=== PATIENT | female | born 2000 | race Two or more races ===

== ENCOUNTER 2023-04-12 09:20 | Emergency (ER) | payer MEDICAID, OTHER ==
[~2023-04-12] VITALS: Ht 160 cm; Wt 55.9 kg
[2023-04-12 09:58] LABS: Basophils # (auto) 0 10 ^3/uL (0-0.2); Basophils % (auto) 0.4 % (0.0-2.0); Eosinophils # (auto) 0 10 ^3/uL (0-0.8); Eosinophils % (auto) 0.6 % (0.0-7.0); Hematocrit 39.8 % (36.0-46.0); Hemoglobin 13.3 g/dL (12.2-16.2); Lymphocytes # (auto) 1.7 10 ^3/uL (0.4-5.4); Lymphocytes % (auto) 21.9 % (10.0-50.0); Mean Corpuscular Hemoglobin 29.6 pg (28.0-32.0); Mean Corpuscular Hgb Conc. 33.4 g/dL (32.0-36.0); Mean Corpuscular Volume 88.4 fL (80.0-100.0); Monocytes # (auto) 0.4 10 ^3/uL (0-1.3); Monocytes % (auto) 5.5 % (0.0-12.0); Neutrophils # (auto) 5.5 10 ^3/uL (1.6-8.6); Neutrophils % (auto) 71.6 % (37.0-80.0); Red Cell Distribution Width 14.9 % (11.8-14.3); White Blood Cell 7.7 10^3/uL (4.4-10.8)
[2023-04-12 09:59] LABS: Urine Bacteria FEW /hpf (None Seen); Urine Blood 3+ /uL (Negative); Urine Clarity HAZY (Clear); Urine Color Colorless (Yellow); Urine Mucus FEW (None Seen); Urine Protein, UAD Negative (Negative); Urine Specific Gravity 1.011 (1.001-1.035); Urine Urobilinogen Normal (Negative); Urine WBC 9 /hpf (0 - 5); Urine pH 5.5 (5.0-8.0)
[2023-04-12 10:23] LABS: Alanine Aminotransferase 13 U/L (7-40); Albumin 4.2 g/dL (3.2-4.8); Alkaline Phosphatase 74 U/L (46-116); Anion Gap 7.5 (5-15); Aspartate Aminotransferase 12 U/L (13-40); Calcium 8.7 mg/dL (8.5-10.1); Carbon Dioxide 22.5 mmol/L (20-30); Chloride 109 mmol/L (98-107); Glucose 93 mg/dL (74-106); Potassium 3.9 mmol/L (3.5-5.1); Sodium 139 mmol/L (136-145)
[2023-04-12 10:24] LABS: Bilirubin, Total 0.3 mg/dL (0.2-1.0); Total Protein 6.8 g/dL (5.7-8.2)
[2023-04-12 10:29] LABS: BUN/Creatinine Ratio 6.3 (10.0-20.0); Blood Urea Nitrogen < 5 mg/dL (9-23)
[2023-04-12] MEDS ORDERED: IOHEXOL 350 MG/ML 100ML IJ ONE (12:27)
[2023-04-12] MEDS ORDERED: CIPR-173 PO (13:44)
[2023-04-12 13:54] VITALS: BP 120/84; PULSE 82; RESP 18; TEMP 98; O2SAT 99
== END 2023-04-12 13:56 | disposition home or self-care (01) ==
LOC: ER 09:20
DX: N39.0 Urinary tract infection, site not specified (principal); R10.2 Pelvic and perineal pain; R07.89 Other chest pain; J45.909 Unspecified asthma, uncomplicated; Z79.2 Long term (current) use of antibiotics
CPT/HCPCS: 36415; 71046; 71275; 76830; 76856; 80053; 81001; 84702; 85025; 85379; 99285; Q9967; 93005

== ENCOUNTER 2023-07-26 16:20 | Emergency (ER) | payer MEDICAID ==
[~2023-07-26] VITALS: Ht 160 cm; Wt 63.0 kg
[~2023-07-26 16:20] MED LIST: CIPR-173 PO
[2023-07-26] MEDS ORDERED: DexAMETHasone SOD PHOS 10MG/1ML VIAL INJ IM ONE (16:45)
[2023-07-26] MEDS ORDERED: IPRATROPIUM BROM 0.5 MG/2.5ML INH SOL NEB ONE (16:45)
[2023-07-26] MEDS ORDERED: ALBUTEROL SULF 2.5 MG/0.5ML(0.5%) NEB SOLN NEB ONE (16:45)
[2023-07-26 16:51] LABS: Basophils # (auto) 0 10 ^3/uL (0-0.2); Basophils % (auto) 0.3 % (0.0-2.0); Eosinophils # (auto) 0 10 ^3/uL (0-0.8); Eosinophils % (auto) 0.7 % (0.0-7.0); Hematocrit 42.2 % (36.0-46.0); Hemoglobin 13.9 g/dL (12.2-16.2); Lymphocytes # (auto) 1.3 10 ^3/uL (0.4-5.4); Lymphocytes % (auto) 26.3 % (10.0-50.0); Mean Corpuscular Hemoglobin 30.5 pg (28.0-32.0); Mean Corpuscular Hgb Conc. 32.9 g/dL (32.0-36.0); Mean Corpuscular Volume 92.8 fL (80.0-100.0); Monocytes # (auto) 0.5 10 ^3/uL (0-1.3); Monocytes % (auto) 11.1 % (0.0-12.0); Neutrophils % (auto) 61.6 % (37.0-80.0); Nucleated Red Blood Cells % 0.1 %; Red Blood Cells 4.55 10^6/uL (4.0-5.20); Red Cell Distribution Width 13.6 % (11.8-14.3); White Blood Cell 4.8 10^3/uL (4.4-10.8)
[2023-07-26 17:06] LABS: INR 0.9 (0.9-1.15); Partial Thromboplastin Time 31.2 SEC (24.5-34.5); Prothrombin Time 9.5 sec (9.3-11.8)
[2023-07-26 17:11] LABS: Alanine Aminotransferase 15 U/L (7-40); Albumin 4.7 g/dL (3.2-4.8); Alkaline Phosphatase 86 U/L (46-116); Anion Gap 8 (5-15); Aspartate Aminotransferase 22 U/L (13-40); Bilirubin, Total 0.3 mg/dL (0.2-1.0); Blood Urea Nitrogen 8 mg/dL (9-23); Calcium 8.9 mg/dL (8.7-10.4); Carbon Dioxide 25 mmol/L (20-30); Chloride 105 mmol/L (98-107); Glucose 84 mg/dL (74-106); Potassium 3.4 mmol/L (3.5-5.1); Sodium 138 mmol/L (136-145); Total Protein 7.4 g/dL (5.7-8.2)
[2023-07-26] MEDS ORDERED: ALBUTEROL SULF 2.5 MG/0.5ML(0.5%) NEB SOLN ONE (17:12)
[2023-07-26] MEDS ORDERED: IPRATROPIUM BROM 0.5 MG/2.5ML INH SOL ONE (17:12)
[2023-07-26 17:28] LABS: BUN/Creatinine Ratio 8.9 (10.0-20.0)
[2023-07-26] MEDS ORDERED: DexAMETHasone SOD PHOS 10MG/1ML VIAL INJ ONE (20:22)
[2023-07-27] MEDS ORDERED: IBUP-1455 PO (01:52)
[2023-07-27] MEDS ORDERED: KETOROLAC TROMETH 60MG/2ML VIAL IM ONE (02:00)
[2023-07-27] MEDS ORDERED: KETOROLAC TROMETH 30 MG/ML 1ML VIAL ONE (02:03)
[2023-07-27 02:08] VITALS: BP 104/66; PULSE 72; RESP 18; TEMP 98; O2SAT 99
== END 2023-07-27 02:09 | disposition home or self-care (01) ==
LOC: ER 16:20
DX: M94.0 Chondrocostal junction syndrome [Tietze] (principal); J45.909 Unspecified asthma, uncomplicated; Z79.899 Other long term (current) drug therapy
CPT/HCPCS: 36415; 71045; 80053; 83735; 83880; 84484; 85025; 85610; 85730; 93005; 94640; 96372; 99285; J1100; J1885; J7644

== ENCOUNTER 2025-07-15 12:59 | Emergency (ER) | payer MEDICAID ==
[~2025-07-15] VITALS: Ht 160 cm; Wt 63.0 kg
[~2025-07-15 12:59] MED LIST changes: +IBUP-1455 PO
--- NOTE | 2025-07-15 13:53 | ED.PDOC ---
SOB-HPI HPI Comments A 25 YEAR OLD FEMALE PRESENTS TO THE ED WITH COMPLAINT OF ASTHMA EXACERBATION. PATIENT STATES HE HAS A HISTORY OF ASTHMA AND HAS BEEN EXPERIENCING A COUGH, CONGESTION, AND CHEST TIGHTNESS FOR THE PAST 1 WEEK. PATIENT REPORTS SHE HAS BEEN USING HER INHALER AND NEBULIZER MACHINE WITH NO IMPROVEMENT IN HER SYMPTOMS. PATIENT ALSO NOTES THAT SHE RECENTLY DID AN AT-HOME TEST WHICH WAS POSITIVE AND HAS BEEN EXPERIENCING MILD PELVIC CRAMPING, BUT NOTES THAT SHE IS NOT SURE HOW FAR ALONG SHE IS AT THIS SINCE SHE HAS NEVER FOLLOWED UP WITH AN BATCH OPERATOR OR CONFIRMED IT THROUGH BLOOD TEST. PATIENT DENIES DYSURIA, HEMATURIA, VAGINAL DISCHARGE, VAGINAL BLEEDING/SPOTTING, FEVER, CHILLS, SHORTNESS OF BREATH, CHEST PAIN, ABDOMINAL PAIN, NAUSEA, VOMITING, HEADACHE, OR OTHER COMPLAINTS. NO OTHER SYMPTOMS OR MODIFYING FACTORS AT THIS TIME. PATIENT IS ALERT, ORIENTED X 4, AND HAS STEADY GAIT. Chief Complaint: Asthma Time Seen by MD: 13:05 Primary Care Provider: UNK Reviewed notes: Nurses Notes, Medications, Allergies Information Source: Patient Mode of Arrival: Ambulatory Severity: Moderate Timing: Days Duration: Since onset, Days Context: Spontaneous Onset PE Risk Factors: None History of: Asthma Prehospital treatment: None Modifying Factors: Nothing Associated Signs and Symptoms: Cough, Nasal Congestion If cough with SOB: Productive Past Medical History PAST MEDICAL HISTORY: Asthma Surgical History: Denies all surgeries WRAPPER SORTER History: Denies all WRAPPER SORTER Hx Family History Family History: Reviewed,noncontributory to illness, Family hx of Cancer Social History Smoker: Non-Smoker Alcohol: Denies ETOH Use Drugs: Denies Drug Use Lives In: Home Constitutional: denies: chills, diaphoresis, fatigue, fever, malaise, sweats, weakness, others EENTM: reports: nose congestion; denies: blurred vision, double vision, ear bleeding, ear discharge, ear drainage, ear pain, ear ringing, eye pain, eye redness, hearing loss, mouth pain, mouth swelling, nasal discharge, nose bleeding, nose pain, photophobia, tearing, throat pain, throat swelling, voice changes, others Respiratory: reports: cough, wheezing; denies: hemoptysis, orthopnea, SOB at rest, shortness of breath, SOB with excertion, stridor, others Cardiovascular: denies: chest pain, dizzy spells, diaphoresis, Dyspnea on exertion, edema, irregular heart beat, left arm pain, lightheadedness, palpitations, PND, syncope, others Gastrointestinal: denies: abdomen distended, abdominal pain, blood streaked bowels, constipated, diarrhea, dysphagia, difficulty swallowing, hematemesis, melena, nausea, poor appetite, poor fluid intake, rectal bleeding, rectal pain, vomiting, others Genitourinary: reports: pain, ; denies: abnormal vagina bleeding, burning, dyspareunia, dysuria, flank pain, frequency, hematuria, incontinence, vagina discharge, urgency, others Neurological: denies: dizziness, fainting, headache, left sided numbness, left sided weakness, numbness, paresthesia, pre-existing deficit, right sided numbne ss, right sided weakness, seizure, speech problems, tingling, tremors, weakness, others Musculoskeletal: denies: back pain, gout, joint pain, joint swelling, muscle pain, muscle stiffness, neck pain, others Integumetry: denies: bruises, change in color, change in hair/nails, dryness, laceration, lesions, lumps, rash, wounds, others Allergic/Immunocompromised: denies: Difficulty Healing, Frequent Infections, Hives, Itching, others Hematologic/Lymphatic: denies: anemia, blood clots, easy bleeding, easy bruising, swollen glands, others Endocrine: denies: excessive hunger, excessive sweating, excessive thirst, excessive urination, flushing, intolerance to cold, intolerance to heat, unexplained weight gain, unexplained weight loss, others Psychiatric: denies: anxiety, bipolar disorder, depression, hopeless, panic disorder, schizophrenia, sleepless, suicidal, others All Other Systems: Reviewed and Negative Physical Exam General Appearance: No Apparent Distress, Normal HEENT: Normal ENT Inspection, PERRL/EOMI, Pharynx Normal, TMs Normal Neck: Full Range of Motion, Non-Tender, Normal, Normal Inspection Respiratory: Chest Non-Tender, Expiration, No Accessory Muscle Use, No Respiratory Distress, Wheezing Cardiovascular: No Edema, No JVD, No Murmur, No Gallop, Normal Peripheral Pulses, Regular Rate/Rhythm Breast Exam: Deferred Gastrointestinal: No Organomegaly, Non Tender, No Pulsatile Mass, Normal Bowel Sounds, Soft Genitalia: Deferred Pelvic: Normal External Exam, Tender Uterus Rectal: Deferred Extremities: No calf tenderness, Normal capillary refill, Normal inspection, Normal range of motion, Non-tender, No pedal edema Musculoskeletal : Apperance: Normal Neurologic: Alert, 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 Was a procedure done?: No Differential Dx Differential Diagnosis: Asthma, Bronchitis, Sinusitis, Allergic Rhinitis, Otitis Media, Pharyngitis, URI X-Ray, Labs, Meds, VS Vital Signs Date Time Temp Pulse Resp B/P (MAP) Pulse Ox O2 Delivery O2 Flow Rate FiO2 07/15/25 15:59 98.4 76 19 113/75 (88) 100 98.4 07/15/25 14:14 18 98 Room Air* 0 21 07/15/25 13:37 93 24 98 Room Air 07/15/25 13:37 98.4 93 24 115/73 (87) 98 98.4 07/15/25 13:02 97.4 93 24 115/73 98 97.4 Lab Test 07/15/25 15:09 07/15/25 14:34 Range/Units Urine Color Dark-yellow Yellow Urine Clarity Turbid H Clear Urine pH 6.0 5.0-9.0 Urine Specific [place] 1.034 1.001-1.035 Urine Protein 1+ H Negative Urine Ketones 4+ H Negative Urine Blood Trace H Negative /uL Urine Nitrite Negative Negative Urine Bilirubin Negative Negative Urine Urobilinogen 3 H Negative mg/dL Urine Leukocyte Esterase 2+ Negative /uL Urine RBC 15 0 - 4 /hpf Urine Microscopic WBC 27 H 0-5 /HPF Urine Squamous Epithelial Cells Many <5 /hpf Urine Bacteria None seen None Seen /hpf Urine Mucus Few None Seen Urine Glucose Normal Normal mg/dL White Blood Count 9.0 4.4-10.8 10^3/uL Red Blood Count 4.66 4.0-5.20 10^6/uL Hemoglobin 14.1 12.2-16.2 g/dL Hematocrit 41.5 36.0-46.0 % Mean Corpuscular Volume 89.0 80.0-100.0 fL Mean Corpuscular Hemoglobin 30.2 28.0-32.0 pg Mean Corpuscular Hemoglobin Concent 33.9 32.0-36.0 g/dL Red Cell Distribution Width 14.3 11.8-14.3 % Platelet Count 310 140-450 10^3/uL Mean Platelet Volume 8.3 6.9-10.8 fL Neutrophils (%) (Auto) 80.6 H 37.0-80.0 % Lymphocytes (%) (Auto) 11.8 10.0-50.0 % Monocytes (%) (Auto) 7.1 0.0-12.0 % Eosinophils (%) (Auto) 0.1 0.0-7.0 % Basophils (%) (Auto) 0.4 0.0-2.0 % Neutrophils # (Auto) 7.2 1.6-8.6 10 ^3/uL Lymphocytes # (Auto) 1.1 0.4-5.4 10 ^3/uL Monocytes # (Auto) 0.6 0-1.3 10 ^3/uL Eosinophils # (Auto) 0 0-0.8 10 ^3/uL Basophils # (Auto) 0 0-0.2 10 ^3/uL Nucleated Red Blood Cells 0.1 % Sodium Level 139 136-145 mmol/L Potassium Level 3.1 L 3.5-5.1 mmol/L Chloride Level 102 98-107 mmol/L Carbon Dioxide Level 22 20-31 mmol/L Anion Gap 15 5-15 Blood Urea Nitrogen 7 L 9-23 mg/dL Creatinine 0.80 0.550-1.02 mg/dL Glomerular Filtration Rate Calc 105 >90 mL/min BUN/Creatinine Ratio 8.8 L 10.0-20.0 Serum Glucose 106 74-106 mg/dL Calcium Level 9.9 8.7-10.4 mg/dL Beta HCG, Quantitative 062459.0 H 1.5-4.2 mIU/mL Current Medications Medications (Trade) Dose Ordered Sig/My Route Start Time Stop Time Status Last Admin Albuterol (Ventolin Medneb) 2.5 mg ONCE ONCE NEB 07/15/25 14:00 07/15/25 14:01 DC 07/15/25 14:13 Ipratropium [place] (Atrovent Medneb) 0.5 mg ONCE ONCE NEB 07/15/25 14:00 07/15/25 14:01 DC 07/15/25 14:14 Dexamethasone Sodium Phosphate (Decadron Injection) 10 mg ONCE ONCE IM 07/15/25 14:00 07/15/25 14:01 DC 07/15/25 14:05 Potassium Chloride (Klor-Con Tablet) 40 meq ONCE ONCE PO 07/15/25 16:00 07/15/25 16:01 DC 07/15/25 16:01 PATIENT: ALEXANDRE FLANAGANACCT: [id number]: [id number] : 2000 LOC: ER ROOM / BED: / AGE / SEX: 25 / F ADM STATUS: [facility] ER SERVICE 1525 ORDERING PHYSICIAN: MERA SAENZ PROCEDURE(s): OB4US - OB ULTRASOUND COMP LESS 14WKS REASON: PELVIC PAIN, BETA-HC,201.0 ORDER NUMBER(s): [id number], ACCESSION NUMBER(s): [id number] OB ULTRASOUND <14 WEEKS: HISTORY: PELVIC PAIN, BETA-HC,201.0 TECHNIQUE: Multiple real-time grayscale sonographic images of the pelvis with duplex Doppler color flow, spectral and M-mode analysis. TRANSDUCERS: Transabdominal FINDINGS: The uterus measures 8.7 x 6.8 x 4.9 cm The cervix not measured Right ovary not visualized Left ovary not visualized IUP single live fetus at 7 weeks 4 days average ultrasound age based on mean crown-rump length of 1.35 cm cm and gestational sac size of 2.8 cm heart rate detected at 173 beats per minute. Yolk sac visualized. Amniotic fluid adequate [place]-gestational space: Within normal limits IMPRESSION: 1. IUP single live fetus 7 weeks 4 days AUA corresponding to an BATSHEVA of 02/27/2026. 2. FHR: 173 beats per minute. ATED BY: TEX DENG Jr., DO DICTATED DATE/TIME: 07/15/251622 SIGNED BY: TEX DENG Jr., SIGNED DATE/TIME: 07/15/251622 CC: X-Ray, Labs, Meds, VS Comment EXTERNAL MEDICAL RECORDS REVIEWED: [NONE] INDEPENDENT HISTORIANS: [NONE] SOCIAL DETERMINANTS OF HEALTH: [NONE] LABS ORDERED: CBC, BMP, UA, BETA HCG QUANT REVIEWED AND INTERPRETED RESULTS: KET 4+, LEUKOCYTES 2+, K 3.1, BETA HCG QUANT 164,201.0 IMAGING ORDERED: US OB < 14 WKS: [INTERPRETED BY U.S. TECH. SINGLE LIVE IUP VISUALIZED MEASURING 7 WEEKS AND 3 DAYS. FHR OF 173 BEATS PER MINUTE. NO ABNORMALITY SEEN. PENDING RADIOLOGY REVIEW.] TREATMENTS ORDERED: DUONEB 3 MG INHL, DECADRON 10 MG IM, POTASSIUM 40 MEQ PO PROCEDURES PERFORMED: NONE CRITICAL CARE TIME: NONE I HAVE DISCUSSED THE PATIENT WITH THE ATTENDING PHYSICIAN DR. MCGILL AND HE AGREES WITH THE PATIENT'S PLAN OF CARE AND DISPOSITION. BASED ON HISTORY OF PRESENT ILLNESS, AND PHYSICAL EXAM, PATIENT WILL BE DISCHARGED HOME. DISCUSSED PLAN FOR DISCHARGE HOME WITH RX [KEFLEX]. MEDICATION WARNINGS GIVEN. SHARED DECISION MAKING: DISCUSSED WITH PATIENT THAT THEIR WORKUP WAS NORMAL. PATIENT INSTRUCTED TO FOLLOW UP WITH PRIMARY CARE PROVIDER IN 1-2 DAYS FOR RE- EVALUATION OF SYMPTOMS. PATIENT VERBALIZES UNDERSTANDING TO RETURN TO ED FOR NEW OR WORSENING SYMPTOMS OR IF FOLLOW UP WITH PCP CANNOT BE OBTAINED. PATIENT FEELS COMFORTABLE GOING HOME AT THIS TIME. ALL QUESTIONS ADDRESSED AT TIME OF DISCHARGE. Images Reviewed?: Images reviewed and evaluated by me Time of 1ST Reevaluation: 16:00 Reevaluation 1ST: Improved Patient Education/Counseling: Diagnosis, Treatment, Need For Follow Up Family Education/Counseling: Diagnosis, Treatment, Need For Follow Up Medical Screening: No EMC Exist At This Time SEPSIS Sepsis Screen Date sepsis recognized/suspect: Jul 15, 2025 Time Sepsis recognized/suspect: 1303 Recent Procedure: No Respiratory Rate >20: Yes Heart Rate >90: Yes Temp<36 C (96.8 F) or >38.3 C: No SBP <90 or MAP <65 mmHG: No New Acute Mental Status Change: No Is the patient on CPAP, BIPAP,: No Physician Orders Ob Ultrasound Comp Less 14wks (07/15/25 15:25) Vital Signs Date Time Temp Pulse Resp B/P (MAP) Pulse Ox O2 Delivery O2 Flow Rate FiO2 07/15/25 15:59 98.4 76 19 113/75 (88) 100 98.4 07/15/25 14:14 18 98 Room Air* 0 21 07/15/25 13:37 93 24 98 Room Air 07/15/25 13:37 98.4 93 24 115/73 (87) 98 98.4 07/15/25 13:02 97.4 93 24 115/73 98 97.4 Laboratory Tests Test 07/15/25 14:34 White Blood Count 9.0 10^3/uL (4.4-10.8) Medications Medications Dose Ordered Sig/My Route Start Time Stop Time Status Last Admin Dose Admin Albuterol 2.5 mg ONCE ONCE NEB 07/15/25 14:00 07/15/25 14:01 DC 07/15/25 14:13 Dexamethasone Sodium Phosphate 10 mg ONCE ONCE IM 07/15/25 14:00 07/15/25 14:01 DC 07/15/25 14:05 Ipratropium [place] 0.5 mg ONCE ONCE NEB 07/15/25 14:00 07/15/25 14:01 DC 07/15/25 14:14 Potassium Chloride 40 meq ONCE ONCE PO 07/15/25 16:00 07/15/25 16:01 DC 07/15/25 16:01 Departure 1 Departure Time of Disposition: 16:10 Impression: Primary Impression: Acute asthma exacerbation Qualified Codes: J45.21 - Mild intermittent asthma with (acute) exacerbation Additional Impressions: Acute UTI (urinary tract infection) Normal in first trimester Disposition: 01 HOME / SELF CARE / HOMELESS Condition: Stable Additional Instructions: FOLLOW-UP WITH PCP AND BATCH OPERATOR IN 1 TO 2 DAYS. TAKE MEDICATIONS PRESCRIBED. RETURN TO ED FOR ANY NEW OR WORSENING SYMPTOMS. e-Prescriptions Cephalexin Monohydrate (Cephalexin) 500 Mg Cap 1 CAP PO TID, #30 CAP Prov: MERA SAENZ 07/15/25 Discharged With: Self Critical Care Note Critical Care Time?: No Stability Stability form required: No Heart Score Heart Score: Heart Score Response (Comments) Value History N/A 0 EKG N/A 0 Age N/A 0 Risk Factors N/A 0 Troponin N/A 0 Total 0 I personally scribed for MERA SAENZ ([email or web address]) on 07/15/25 at 13:53. Electronically submitted by Harlan Cason ([email or web address]). I personally scribed for MERA SAENZ ([email or web address]) on 07/15/25 at 14:30. Electronically submitted by Harlan Cason ([email or web address]). I personally scribed for MERA SAENZ ([email or web address]) on 07/15/25 at 15:58. Electronically submitted by Harlan Cason ([email or web address]). MERA SAENZ Jul 15, 2025 13:53
[2025-07-15] MEDS: ALBUTEROL SULF 2.5 MG/0.5ML(0.5%) NEB SOLN NEB ONE (14:13)
[2025-07-15] MEDS: IPRATROPIUM BROM 0.5 MG/2.5ML INH SOL NEB ONE (14:14)
[2025-07-15 14:46] LABS: Hematocrit 41.5 % (36.0-46.0); Hemoglobin 14.1 g/dL (12.2-16.2); Mean Corpuscular Hemoglobin 30.2 pg (28.0-32.0); Mean Corpuscular Volume 89.0 fL (80.0-100.0); Nucleated Red Blood Cells % 0.1 %
[2025-07-15 14:54] LABS: Chloride 102 mmol/L (98-107); Sodium 139 mmol/L (136-145)
[2025-07-15 14:55] LABS: Anion Gap 15 (5-15); Carbon Dioxide 22 mmol/L (20-31)
[2025-07-15 14:56] LABS: Calcium 9.9 mg/dL (8.7-10.4)
[2025-07-15 15:01] LABS: BUN/Creatinine Ratio 8.8 (10.0-20.0)
[2025-07-15 15:02] LABS: Blood Urea Nitrogen 7 mg/dL (9-23); Glucose 106 mg/dL (74-106); Potassium 3.1 mmol/L (3.5-5.1)
[2025-07-15 15:31] LABS: Urine Protein, UAD 1+ (Negative)
[2025-07-15 15:59] VITALS: BP 113/75; PULSE 76; RESP 19; TEMP 98.4; O2SAT 100
[2025-07-15] MEDS ORDERED: CEPH500C PO (16:01)
[2025-07-15] MEDS: POTASSIUM CHL 20 Meq TABLET PO ONE (16:01)
--- NOTE | 2025-07-15 16:26 | DVH ---
OB ULTRASOUND <14 WEEKS: HISTORY: PELVIC PAIN, BETA-HC,201.0 TECHNIQUE: Multiple real-time grayscale sonographic images of the pelvis with duplex Doppler color flow, spectral and M-mode analysis. TRANSDUCERS: Transabdominal FINDINGS: The uterus measures 8.7 x 6.8 x 4.9 cm The cervix not measured Right ovary not visualized Left ovary not visualized IUP single live fetus at 7 weeks 4 days average ultrasound age based on mean crown-rump length of 1.35 cm cm and gestational sac size of 2.8 cm heart rate detected at 173 beats per minute. Yolk sac visualized. Amniotic fluid adequate [place]-gestational space: Within normal limits IMPRESSION: 1. IUP single live fetus 7 weeks 4 days AUA corresponding to an BATSHEVA of 02/27/2026. 2. FHR: 173 beats per minute.
== END 2025-07-15 16:04 | disposition home or self-care (01) ==
LOC: ER 12:59
DX: O99.511 Diseases of the respiratory system complicating pregnancy, first trimester (principal); J45.21 Mild intermittent asthma with (acute) exacerbation; O23.41 Unspecified infection of urinary tract in pregnancy, first trimester; N39.0 Urinary tract infection, site not specified; Z3A.01 Less than 8 weeks gestation of pregnancy
CPT/HCPCS: 36415; 76801; 80048; 81001; 84702; 85025; 94640; 96372; 99285; J1100